=== PATIENT | male | born 1950 | race Caucasian/White ===

== ENCOUNTER 2024-11-13 20:26 | Emergency (ER) | payer OTHER, SELFPAY ==
[2024-11-13 20:27] VITALS: BP 158/82; PULSE 101; RESP 14; TEMP 36.4; O2SAT 100; BMI 28.1
[2024-11-13 20:36] VITALS: BP 158/82; PULSE 101; RESP 14; TEMP 36.4; O2SAT 100
[2024-11-13 20:42] VITALS: BP 158/82; PULSE 101; RESP 14; TEMP 36.4; O2SAT 100
--- NOTE | 2024-11-13 20:48 | EX.ED.UPPERE ---
HPI History of Present Illness Chief Complaint: Upper Extremity Injury Informant: patient Narrative Narrative: Patient is a 74-year-old male, [id number], presenting for wound check to his left ring finger. Patient sustained a crush injury from a press to the pad of his left ring finger 3 days ago. He has been cleaning it at home. His finger pad was avulsed off. He also sustained some superficial abrasions to his other fingers. His son and [id number] found out about today and saw it and recommended he come to the emergency room. He denies any fever or chills. States the pain is not bad unless the bandage comes off and that it is acutely painful. Is not currently on any antibiotics. No other complaints or concerns at this time. No other injuries reported. Denies any numbness or tingling. Denies any difficulty moving his finger Tetanus Immunization: Unknown [facility] Medical History Hypertension Home Medications ?Medication ?Instructions ?Recorded ?Last Taken ?Type cephalexin 500 mg capsule 500 mg PO Q8H #21 caps 11/13/24 Unknown Rx Allergy/AdvReac Type Severity Reaction Status Date / Time No Known Allergies Allergy Verified 11/13/24 20:27 Social History Smoking Status: Never smoker ROS ROS ED Constitutional Constitutional ED: Denies chills or fever(s) Gastrointestinal Gastrointestinal: Denies nausea or vomiting Musculoskeletal Musculoskeletal: Reports other Details: Left ring finger pain Integumentary Reports other Details: Wound to his left ring finger Neurologic Neurologic: Denies paresthesias or weakness Hematologic/Lymphatic Hematologic/Lymphatic: Denies easy bleeding or easy bruising EXAM Physical Exam Const Vital Signs: 11/13/24 20:27 11/13/24 20:36 Temperature 97.6 F L 97.6 F L Temperature Source Oral Oral Pulse Rate 101 H 101 H Respiratory Rate 14 14 Blood Pressure 158/82 H 158/82 H Blood Pressure Mean 107 107 Pulse Ox 100 100 Oxygen Delivery Method Room Air Room Air Positive well nourished and well developed General Appearance ED: well developed and NAD Eyes PERRL Neck supple Chest Wall inspection of chest normal Resp normal respiratory effort and clear to auscultation bilaterally Cardio regular rate and regular rhythm Cardio Narrative: 2+ radial pulses Extremity normal to inspection and full ROM Extremity Narrative: No obvious flexor tendon injury. Normal flexion extension of the fingers. Neuro oriented x3, moves all extremities, no focal motor deficits and no sensory deficits noted Sensorium / Orientation: alert Psych mental status grossly normal Skin Skin Narrative: Avulsion of the distal left 4th finger finger pad-slightly irregular with exposure of the subcutaneous tissue. It is approximately 3 cm x 2 cm. The surrounding skin slightly macerated likely from the patient's bandage. There is a central yellow discoloration which patient states is piece of gauze or bandage that is stuck on. There are some scattered superficial abrasions on the left second finger as well. No associated erythema or cellulitic changes. After soaking of the hand the discoloration is removed and it does appear to be a piece of bandage. There is underlying exposure of the belly of the muscle. No obvious tendon exposure. MDM MDM MDM Narrative Medical decision making narrative: Patient evaluated for wound check to left ring finger. He sustained a crush injury and avulsed chunk of the fat pad off of the finger. Differential includes associated bony injury, infection and tendon injury. X-ray of the finger reviewed by myself as well as radiology does not show any acute fracture or bony abnormality. No free air is noted. Digital nerve block obtained for analgesia associated with wound care. Patient tolerated this well. 1% lidocaine utilized. Wound is soaked and water mixed with cleaning solution. I then debrided the wound and got rid of the excess piece of bandage that was stuck on it. Underneath that there is exposure of some muscle. Do not see any obvious tendon involvement. He has normal range of motion. Nonadhesive dressing with bacitracin and Xeroform is then placed. Wound is bandaged. Patient will be empirically placed on Keflex. Is given hand follow-up. Tetanus is updated. Given close return precautions. Counseled signs of infection. Counseled on localized wound care. Patient and son agreeable plan of care. Patient discharged home in stable condition. Discharge Plan Triage Chief Complaint: Upper Extremity Injury ED Provider: Marylou Cavazos Dx/Rx/DC Orders Clinical Impression: Avulsion of skin of finger without complication, Crushing injury of left ring finger Instructions: ED Crush Injury, Hand, ED Skin Tear (Skin Avulsion) Prescriptions: New cephalexin 500 mg capsule 500 mg PO Q8H Qty: 21 0RF Primary Care Provider: Carmina Marquez Referrals: Bruce Judge MD [Med Staff - Active Staff] - Carmina Marquez MD [Primary Care Provider] - Activity Restrictions/Additional Instructions: Apply [id number] bacitracin dressing for dressing changes. Clean the wound daily with warm soapy water. Apply nonadhesive dressing to the area. If you develop signs of infection including worsening pain or redness as well as fever please return immediately to the emergency room. Please follow-up with hand specialist, Dr. Judge. Print Language: [place]awian
--- NOTE | 2024-11-13 20:55 | RAD_ITS ---
PROCEDURE: FINGER(S) MIN 2 VIEWS 11/13/2024 REASON FOR EXAM: TRAUMA - CRUSH TECHNIQUE: 3 view(s) of the left ring finger COMPARISON: None. FINDINGS: Bones: No acute osseous fracture. No aggressive osseous lesions. Joints: Normal alignment. Mild degenerative changes. Soft tissues: Soft tissues are unremarkable. No radiopaque foreign body. RAD/Finger(s) Min 2 Views IMPRESSION: NEGATIVE FINGER SERIES Reading Location: [id number]
[2024-11-13] MEDS: Diphth,Pertuss(Acell),Tet Vac 0.5 ML Vial IM (21:03)
[2024-11-13] MEDS: Lidocaine 1% (20 ml mdv) 20 ML Vial 10 ML INFILT (21:04)
[2024-11-13 21:40] VITALS: BP 137/85; PULSE 96; RESP 14; TEMP 36.5; O2SAT 98
[2024-11-13 22:00] VITALS: BP 136/82; PULSE 79; RESP 14; TEMP 36.6; O2SAT 95
[2024-11-13 22:25] VITALS: BP 136/82; PULSE 79; RESP 14; TEMP 36.6; O2SAT 95
== END 2024-11-13 22:33 | disposition home or self-care (01) ==
PROVIDERS: Emergency Provider Emergency Medicine; PCP Internal Medicine Infectious Disease; Visit Provider Emergency Medicine
DX: S67.197A Crushing injury of left little finger, initial encounter (principal); S61.201A Unspecified open wound of left index finger without damage to nail, initial encounter; W31.89XA Contact with other specified machinery, initial encounter; Z23 Encounter for immunization
CPT/HCPCS: 11042; 73140; 90471; 90715; 99282